=== PATIENT | female | born 1965 ===

== ENCOUNTER 2024-03-12 05:10 | Day surgery (SDC) | payer OTHER ==
[2024-02-27 12:07] VITALS: BP 131/79
[2024-02-27 12:16] LABS: URINE APPEARANCE Clear; URINE BILIRRUBIN Negative (NEGATIVE); URINE BLOOD Negative; URINE COLOR Yellow; URINE GLUCOSE Negative (NEGATIVE); URINE KETONE Negative (NEGATIVE); URINE LEUKOCYTE Moderate; URINE NITRATE Negative; URINE PROTEIN Negative (NEGATIVE); URINE UROBILINOGEN 0.2 E.U./dl
[2024-02-27 12:20] LABS: URINE BACTERIA 752.1 uL (0.0-1933); URINE EPITHELIAL CELLS 74.6 uL (0.0-38.8); URINE RBC 3.8 uL (0.0-20.8); URINE WBC 72.8 uL (0.0-23.2)
[2024-02-27 12:27] LABS: HEMATOCRIT 38.5 % (36.0-45.00); HEMOGLOBIN 13.4 g/dL (12.0-15.00); MEAN CELL VOLUME 86.1 fL (80.00-100.00); MEAN CORPUSCULAR HGB CONC 34.9 g/dl (32.0-36.0); PLATELET COUNT 262 K/uL (150-450); RED BLOOD COUNT 4.47 M/uL (4.00-6.00); RED CELL DISTRIBUTION WIDTH 14.2 % (11.5-14.5)
[2024-02-27 12:37] LABS: INR 1.03; PARTIAL THROMBOPLASTIN TIME 28.2 SECONDS (22.0-34.0); PROTHROMBIN TIME 11.2 SECONDS (9.0-11.5)
[2024-02-27 13:11] LABS: URINE CAST 0.15 uL (0.0-1.40)
[2024-02-27 13:20] LABS: ALBUMIN 4.1 gm/dL (3.4-5.0); BILIRUBIN TOTAL 0.59 mg/dL (0.3-1.2); CALCIUM 9.4 mg/dL (8.5-10.1); CREATININE SERUM 0.85 mg/dL (0.55-1.02); FREE TRIODOTIRONINE 2.17 pg/ml (2.18-3.98); GFR 68.22; GLOBULINA 3.7 G/DL (2.4-3.5); POTASSIUM 4.15 mEq/L (3.5-5.1); T4 FREE 0.91 NG/ML (0.76-1.46); TOTAL PROTEIN 7.8 gm/dL (6.4-8.2)
[2024-02-27 13:42] LABS: TSH 5.76 uIU/mL (0.358-3.74)
[~2024-03-12] VITALS: Ht 157.5 cm; Wt 86.2 kg
[~2024-03-12 05:10] MED LIST: CRESTOR40 MG; FENOFIBRIC ACI105 MG; SYNTHROID100 MCG PO; ZESTRIL5 MG PO
[2024-03-12] MEDS ORDERED: POVIDONE-IODINE 118 ML BOTT TOP ONE (08:15)
[2024-03-12] MEDS ORDERED: CEFAZOLIN SODIUM 1,000 MG VIAL IV ONE (08:15)
[2024-03-12] MEDS ORDERED: NAPROXEN500 MG PO (08:35)
[2024-03-12] MEDS ORDERED: DOXYCYCLINE HY100 M2 PO (08:35)
[2024-03-12] MEDS ORDERED: MORPHINE SULFATE 4 MG/ML VIAL IV ONE (10:35)
== END 2024-03-12 14:35 | disposition home or self-care (01) ==
LOC: CIR.AMB 05:10
PROVIDERS: ATTEND Obstetrics & Gynecology
DX: D25.0 Submucous leiomyoma of uterus (principal); N95.0 Postmenopausal bleeding; N84.0 Polyp of corpus uteri; Z91.02 Food additives allergy status; E78.00 Pure hypercholesterolemia, unspecified; I10 Essential (primary) hypertension; E03.8 Other specified hypothyroidism; E66.9 Obesity, unspecified

== ENCOUNTER 2024-07-08 07:15 | Inpatient (IN) | payer OTHER ==
[~2024-07-08] VITALS: Ht 152.4 cm; Wt 84.8 kg
[~2024-07-08 07:15] MED LIST changes: +DOXYCYCLINE HY100 M2 PO; +NAPROXEN500 MG PO
[2024-07-08] MEDS ORDERED: MULTIPLE VITAM1 EAC2 PO (08:20)
[2024-07-08 08:25] VITALS: BP 104/56
[2024-07-08 08:52] VITALS: BP 116/73
[2024-07-08 09:09] LABS: HEMATOCRIT 37.9 % (36.0-45.00); HEMOGLOBIN 12.9 g/dL (12.0-15.00); MEAN CELL VOLUME 85.9 fL (80.00-100.00); MEAN CORPUSCULAR HEMOGLOBIN 29.2 pg (27.00-32.0); PLATELET COUNT 274 K/uL (150-450); RED BLOOD COUNT 4.42 M/uL (4.00-6.00)
[2024-07-08 09:18] LABS: URINE APPEARANCE Clear; URINE BILIRRUBIN Negative (NEGATIVE); URINE BLOOD Negative; URINE COLOR Yellow; URINE GLUCOSE Negative (NEGATIVE); URINE KETONE Negative (NEGATIVE); URINE LEUKOCYTE Negative; URINE NITRATE Negative; URINE PROTEIN Negative (NEGATIVE); URINE UROBILINOGEN 0.2 E.U./dl
[2024-07-08 09:22] LABS: URINE BACTERIA 30.5 uL (0.0-1933); URINE EPITHELIAL CELLS 36.3 uL (0.0-38.8); URINE RBC 5.1 uL (0.0-20.8); URINE WBC 7.1 uL (0.0-23.2)
[2024-07-08 09:24] LABS: INR 1.03; PARTIAL THROMBOPLASTIN TIME 27.6 SECONDS (22.0-34.0); PROTHROMBIN TIME 11.2 SECONDS (9.0-11.5)
[2024-07-08 09:55] LABS: ALBUMIN 4.2 gm/dL (3.4-5.0); BILIRUBIN TOTAL 0.56 mg/dL (0.3-1.2); CALCIUM 9.3 mg/dL (8.5-10.1); CREATININE SERUM 0.86 mg/dL (0.55-1.02); GFR 67.31; GLOBULINA 3.4 G/DL (2.4-3.5); POTASSIUM 4.21 mEq/L (3.5-5.1); TOTAL PROTEIN 7.6 gm/dL (6.4-8.2)
[2024-07-16] MEDS ORDERED: POVIDONE-IODINE 118 ML BOTT TOP ONE (12:21)
[2024-07-16] MEDS ORDERED: METRONIDAZOLE/SODIUM CHLORIDE 500 MG/100 ML PIGGYBACK IV ONE (14:00)
[2024-07-16] MEDS ORDERED: CEFOXITIN SODIUM 2,000 MG VIAL IV ONE (14:00)
[2024-07-16] MEDS ORDERED: VISTASEAL DUAL APPICATOR 1 EACH APPL TOP ONE (14:31)
[2024-07-16] MEDS ORDERED: THROMBIN,HU/FIBRINOGEN/CALCIUM 10 ML SYRINGE TOP ONE (14:32)
[2024-07-16] MEDS ORDERED: MORPHINE SULFATE 4 MG/ML CARTRIDGE IV PRN (15:15)
[2024-07-16] MEDS ORDERED: RINGERS SOLUTION,LACTATED 1,000 ML IV SCH (15:15)
[2024-07-16] MEDS ORDERED: ONDANSETRON HCL 2 MG/ML VIAL IV PRN (15:15)
[2024-07-16] MEDS ORDERED: KETOROLAC TROMETHAMINE 30 MG VIAL IV PRN (15:15)
[2024-07-16] MEDS ORDERED: SUGAMMADEX SODIUM 200 MG/2 ML VIAL IV ONE (15:17)
[2024-07-16] MEDS ORDERED: FENOFIBRIC ACI135 MG (15:26)
[2024-07-16] MEDS ORDERED: ENALAPRILAT DIHYDRATE 1.25 MG/ML VIAL IV PRN (15:45)
[2024-07-16] MEDS ORDERED: ACETAMINOPHEN 500 MG GEL..CAP PO PRN (15:45)
[2024-07-16] MEDS ORDERED: MORPHINE SULFATE 4 MG/ML VIAL IV ONE ×2 (16:20→16:50)
[2024-07-16] MEDS ORDERED: ROSUVASTATIN CALCIUM 20 MG TABLET PO SCH (17:00)
[2024-07-16] MEDS ORDERED: SIMETHICONE 125 MG CAPSULE PO SCH (18:00)
[2024-07-16 18:55] VITALS: BP 97/60
[2024-07-16] MEDS ORDERED: FAMOTIDINE/PF 20 MG/2 ML VIAL IV SCH (21:00)
[2024-07-16 23:11] LABS: HEMATOCRIT 35.2 % (36.0-45.00); MEAN CELL VOLUME 85.2 fL (80.00-100.00); MEAN CORPUSCULAR HEMOGLOBIN 28.9 pg (27.00-32.0); PLATELET COUNT 248 K/uL (150-450); RED BLOOD COUNT 4.14 M/uL (4.00-6.00); RED CELL DISTRIBUTION WIDTH 14.1 % (11.5-14.5)
[2024-07-17] MEDS ORDERED: NAPROXEN 500 MG TABLET PO PRN
[2024-07-17 00:01] VITALS: BP 95/60
[2024-07-17 05:00] VITALS: BP 111/67
[2024-07-17] MEDS ORDERED: LEVOTHYROXINE SODIUM 112 MCG TABLET PO SCH (06:00)
[2024-07-17] MEDS ORDERED: ACETAMINOPHEN WITH CODEINE 1 UDTAB TABLET PO PRN (06:00)
[2024-07-17 08:54] VITALS: BP 100/62
[2024-07-17] MEDS ORDERED: LISINOPRIL 5 MG TABLET PO SCH (09:00)
[2024-07-17] MEDS ORDERED: ACETAMINOPHEN-1 EAC2 PO (09:02)
[2024-07-17] MEDS ORDERED: NAPR500T14 PO (09:02)
[2024-07-17] MEDS ORDERED: PEPCID AC20 MG PO (09:02)
== END 2024-07-17 11:11 | disposition home or self-care (01) | DRG 743 ==
LOC: O/R 07-16 06:15 → SURH 07-16 07:15 → OB/GYN 07-16 16:13
PROVIDERS: ADMIT Obstetrics & Gynecology; ATTEND Obstetrics & Gynecology
PROC: 0UT7FZZ Resection of Bilateral Fallopian Tubes, Via Natural or Artificial Opening With Percutaneous Endoscopic Assistance (ICD-10-PCS; 2024-07-16)
PROC: 0UT2FZZ Resection of Bilateral Ovaries, Via Natural or Artificial Opening With Percutaneous Endoscopic Assistance (ICD-10-PCS; 2024-07-16)
PROC: 0TJB8ZZ Inspection of Bladder, Via Natural or Artificial Opening Endoscopic (ICD-10-PCS; 2024-07-16)
PROC: 0UT9FZZ Resection of Uterus, Via Natural or Artificial Opening With Percutaneous Endoscopic Assistance (ICD-10-PCS; principal; 2024-07-16 08:30)
DX: D25.2 Subserosal leiomyoma of uterus (principal); N80.03 Adenomyosis of the uterus; N95.0 Postmenopausal bleeding; D25.0 Submucous leiomyoma of uterus; R10.2 Pelvic and perineal pain; N81.11 Cystocele, midline